=== PATIENT | female | born 2000 | race Caucasian/White ===

== ENCOUNTER → 2023-02-10 | Outpatient (CLI) | payer BC | LOC: MC.RAD 14:00 | DX: N63.20 Unspecified lump in the left breast, unspecified quadrant (principal) ==

== ENCOUNTER → 2023-08-10 | Outpatient (CLI) | payer BC | LOC: MC.RAD 07:26 | DX: N63.22 Unspecified lump in the left breast, upper inner quadrant (principal) ==